=== PATIENT | female | born 1970 | race Caucasian/White ===

== ENCOUNTER 2017-11-26 05:02 | Emergency (ER) | payer OTHER ==
[~2017-11-26] VITALS: Ht 177.8 cm; Wt 103.2 kg
[~2017-11-26 05:02] MED LIST: LEVAQUIN500 MG PO; MOBIC15 MG PO; NORCO 5/3251 TABLET PO; PRILOSEC20 MG PO; ROBITUSSIN NIG118 ML PO; TESSALON PERLE100 MG PO
[2017-11-26 05:54] LABS: BASOPHIL (%) 0.4 % (0-1); EOSINOPHIL (%) 0.6 % (0-5); EOSINOPHIL COUNT 0.1 K/uL (0-0.3); HEMATOCRIT 41.8 % (36.0-46.0); HEMOGLOBIN 13.9 G/DL (11.9-15.5); IMMATURE GRANULOCYTE (%) 0.2 % (0.0-0.7); LYMPHOCYTE (%) 16.3 % (15-42); LYMPHOCYTE COUNT 1.7 K/uL (1.0-2.8); MCH 27.6 PG (29.0-34.0); MCHC 33.3 G/DL (30.0-36.0); MCV 82.9 FL (83-99); MONOCYTE COUNT 0.5 K/uL (0-0.8); NEUTROPHIL (%) 77.5 % (45-76); NEUTROPHIL COUNT 7.8 K/uL (1.8-6.4); PLATELET COUNT 236 K/uL (156-360); RBC DIS.WIDTH-CV 12.7 % (11.8-14.6); RBC DIS.WIDTH-SD 38.5 % (39-53); RED BLOOD COUNT 5.04 M/uL (3.80-5.20); WHITE BLOOD COUNT 10.1 K/uL (4.1-10.2)
[2017-11-26 06:03] LABS: ALBUMIN 4.4 g/dL (3.2-4.8); CHLORIDE 108 mEq/L (99-109); POTASSIUM 4.7 mEq/L (3.7-5.4); SODIUM 139 mEq/L (136-147)
[2017-11-26 06:05] LABS: GLUCOSE 124 mg/dL (70-99); TOTAL PROTEIN 7.1 g/dL (6.4-8.3)
[2017-11-26 06:07] LABS: TOTAL BILIRUBIN 0.3 mg/dL (0.0-1.0)
[2017-11-26 06:09] LABS: ALKALINE PHOSPHATASE 123 IU/L (3-129); CREATININE 0.9 mg/dL (0.6-1.3); GFR ESTIMATE (CALCULATED) > 59 mL/min/
[2017-11-26 06:10] LABS: UREA NITROGEN (BUN) 11 mg/dL (9-23)
[2017-11-26 06:11] LABS: AST (GOT) 21 IU/L (2-34); DIRECT BILIRUBIN 0.1 mg/dL (0.0-0.3)
[2017-11-26 06:12] LABS: ALT (GPT) 13 IU/L (3-49); LIPASE 27 U/L (1.0-51.0)
[2017-11-26 06:18] LABS: QUANTITATIVE HCG < 4.0 MIU/ML
[2017-11-26 09:41] LABS: APPEARANCE CLEAR ((CLEAR)); BILIRUBIN NEGATIVE; BLOOD NEGATIVE; COLOR STRAW ((YELLOW)); GLUCOSE (STRIP) NEGATIVE; KETONES NEGATIVE; LEUKOCYTES LARGE; NITRITE NEGATIVE; PROTEIN (STRIP) NEGATIVE; SPECIFIC GRAVITY 1.032 (1.000-1.030); UROBILINOGEN 0.2 MG/DL (0.2-1.0)
[2017-11-26 09:44] LABS: BACTERIA NONE SEEN /HPF; EPITHELIAL CELLS RARE /HPF; MUCUS TRACE /LPF; RED BLOOD CELLS 0-5 /HPF (0-5); WHITE BLOOD CELLS 20-30 /HPF (0-5)
[2017-11-26] MEDS ORDERED: ZOFRAN ODT4 MG PO (09:58)
[2017-11-26] MEDS ORDERED: TRAMADOL HCL50 MG PO (09:58)
[2017-11-26] MEDS ORDERED: KEFLEX500 MG PO (09:58)
[2017-11-26 10:29] VITALS: BP 106/60
== END 2017-11-26 10:37 | disposition home or self-care (01) ==
LOC: EME 05:02
PROVIDERS: Physician Assistant
DX: K80.20 Calculus of gallbladder without cholecystitis without obstruction (principal); N39.0 Urinary tract infection, site not specified
CPT/HCPCS: 74177; 76705; 80048; 80076; 81003; 83605; 83690; 84702; 85025; 99281; 99284; J1885; J2405; J7120

== ENCOUNTER 2017-12-13 08:47 | Day surgery (SDC) | payer OTHER ==
[~2017-12-13] VITALS: Ht 177.8 cm; Wt 102.1 kg
[~2017-12-13 08:47] MED LIST changes: +KEFLEX500 MG PO; +MIRENA1 EACH IY; +TRAMADOL HCL50 MG PO; +WELLBUTRIN XL300 MG PO; +WOMEN'S DAILY1 EAC4 PO; +ZOFRAN ODT4 MG PO
[2017-12-13 09:30] VITALS: BP 129/70
[2017-12-13] MEDS ORDERED: COLACE100 MG PO (13:18)
[2017-12-13] MEDS ORDERED: PERCOCET 5/31 TABLET PO (13:18)
[2017-12-13 14:33] VITALS: BP 114/63
[2017-12-13 15:33] VITALS: BP 121/70
[2017-12-13 19:38] VITALS: BP 118/70
== END 2017-12-13 19:47 | disposition home or self-care (01) ==
LOC: SDC 08:47
PROC: 0FT44ZZ Resection of Gallbladder, Percutaneous Endoscopic Approach (ICD-10-PCS; principal; 2017-12-13)
DX: K80.10 Calculus of gallbladder with chronic cholecystitis without obstruction (principal); Z82.5 Family history of asthma and other chronic lower respiratory diseases; Z83.3 Family history of diabetes mellitus; Z80.0 Family history of malignant neoplasm of digestive organs
CPT/HCPCS: 88304; J1100; J1170; J1885; J2250; J2405; J2710; J3010; Q0175; S0074